=== PATIENT | female | born 1985 | race American Indian/Alaskan Native ===

== ENCOUNTER 2021-02-02 15:17 | Outpatient (CLI) | payer SELFPAY ==
--- NOTE | 2021-02-02 17:28 | Ultrasound Report ---
BILATERAL DIGITAL DIAGNOSTIC MAMMOGRAM WITH CAD , 02/02/2021 LEFT LIMITED BREAST ULTRASOUND CLINICAL INFORMATION / INDICATION: The patient reports a lump in the left breast for 3 weeks. TECHNIQUE: Digital bilateral mammographic imaging was performed. Spot compression views were obtained . Limited ultrasound was performed. This examination was interpreted with the benefit of Computer-Aid ed Detection (CAD) analysis. COMPARISON: None. This is the patient's first mammogram. FINDINGS: Breast Density: The breasts are heterogeneously dense, which may obscure small masses. MAMMOGRAPHIC FINDINGS: No dominant mass, suspicious calcifications, or architectural distortion in ei ther breast. There is no focal abnormality to correspond to the patient's area of palpable concern in the lateral periareolar breast. ULTRASOUND FINDINGS: Targeted ultrasound evaluation was performed of the area of interest. Sonograp hic evaluation of the left breast at the 3:00 position periareolar location demonstrates a few mildly prominent ducts. There is no evidence of suspicious solid mass, shadowing or fluid collection. IMPRESSION: 1. No mammographic or sonographic abnormality to correspond to the patient's area of palpable concern . Therefore, clinical correlation is recommended. Follow up recommendation: Clinical exam BI-RADS Category 2: Benign. A "normal" or negative report should not discourage follow up or biopsy of a clinically significant f inding. A written summary of these findings will be mailed to the patient. The patient will be entered into a mammography reporting system which will generate a reminder letter for the patient's next appointmen t at the appropriate interval. According to the [employer], yearly mammograms are recommended starting at age 40 and continuing as long as a woman is in good health. Breast MRI is recommended for women with an alba roximately 20-25% or greater lifetime risk of breast cancer, including women with a strong family his tory of breast or ovarian cancer and women who have been treated for Hodgkin's disease. Signer Name: Mary Garcia MD Signed: 02/02/2021 5:24 PM Workstation Name: [id number]
== END 2021-02-02 15:18 | disposition home or self-care (01) ==
LOC: MAMMO 15:17
PROVIDERS: ATTEND Obstetrics & Gynecology
DX: N63.22 Unspecified lump in the left breast, upper inner quadrant (principal); N60.19 Diffuse cystic mastopathy of unspecified breast; N64.89 Other specified disorders of breast
CPT/HCPCS: 77066